=== PATIENT | female | born 1985 | race Caucasian/White ===

== ENCOUNTER 2017-06-05 10:20 | Emergency (ER) | payer MEDICAID, OTHER ==
[~2017-06-05] VITALS: Ht 160 cm; Wt 51.7 kg
[2017-06-05 10:28] VITALS: BP 108/72; PULSE 102; RESP 16; TEMP 98.6; O2SAT 99
[2017-06-05] MEDS ORDERED: SODIUM CHLOR 0.9% 1000 ML INJ 1,000 ML IV ONE (10:37)
[2017-06-05] MEDS ORDERED: TEMA30CA PO (10:40)
[2017-06-05] MEDS ORDERED: KETOROLAC TROMETHAMINE 30 MG/ML (IVP) VIAL IVP ONE (10:45)
[2017-06-05] MEDS ORDERED: PROCHLORPERAZINE INJ 10 MG/2 ML VIAL IVP ONE (10:45)
[2017-06-05] MEDS ORDERED: diphenhydrAMINE HCL 50 MG/ML VIAL IVP ONE (10:45)
--- NOTE | 2017-06-05 10:45 | PD ---
HPI Chief Complaint: Headache Time Seen by Provider: 10:33 Travel History International Travel<30 days: No Contact w/Intl Traveler<30days: No Traveled to known affect area: No History of Present Illness HPI 31-year-old female states she's had a migraine for the past couple hours. She had a Fioricet left over and she tried this and some Motrin and only had mild improvement. She states that 2 years ago she had imaging of her head and her vessels and those were normal. She states this was when she had a headache when she was out of town. She denies any other concurrent complaints other than nausea. She states she has a Mirena and her cycles are irregular because of this but denies that she is aware of. Quality is pressure. Severity is moderate. Pain is worse with lights. PFSH Past Medical History Diminished Hearing: No Influenza Vaccination: Yes ?: Not LMP: MIRENA Past Surgical History Section: Yes Tonsillectomy: Yes Social History Alcohol Use: Yes (SOCIAL) Tobacco Use: No (denies) Substance Use: No Allergies-Medications (Allergen,Severity, Reaction): Coded Allergies: penicillin G (Unverified Allergy, Severe, 06/05/17) cephalexin (Unverified Allergy, Intermediate, lips swell, 06/05/17) adhesive (Unverified Allergy, Mild, 06/05/17) Reported Meds & Prescriptions Reported Meds & Active Scripts Active Reported Temazepam 30 Mg Cap 30 Mg PO HS PRN Review of Systems Except as stated in HPI: all other systems reviewed are Neg Physical Exam Narrative General: No apparent distress, well appearing ENT: mmm Neck: Neck is supple, no meningeal signs, trachea is midline Cardiovascular: Regular rate and rhythm Lungs: No increased respiratory effort noted Extremities: No edema Neuro: Awake, motor and sensation grossly intact, normal speech Data Data Last Documented VS Vital Signs Date Time Temp Pulse Resp B/P (MAP) Pulse Ox O2 Delivery O2 Flow Rate FiO2 06/05/17 11:48 18 06/05/17 10:56 89 105/67 (80) 99 Room Air 06/05/17 10:28 98.6 Orders Orders Ed Urine Pregnancytest Poc (06/05/17 10:37) Ecg Monitoring (06/05/17 10:37) Iv Access Insert/Monitor (06/05/17 10:37) Oximetry (06/05/17 10:37) Ketorolac Inj (Toradol Inj) (06/05/17 10:45) Prochlorperazine Inj (Compazine Inj) (06/05/17 10:45) Diphenhydramine Inj (Benadryl Inj) (06/05/17 10:45) Sodium Chlor 0.9% 1000 Ml Inj (Ns 1000 M (06/05/17 10:37) MDM Medical Decision Making Medical Screen Exam Complete: Yes Emergency Medical Condition: Yes Medical Record Reviewed: Yes (past history confirmed) Differential Diagnosis Migraine, tension, cluster Narrative Course Will hold on imaging given normal imaging in the past and normal exam and vitals with history that is typical for her migraines. Will dose with Toradol, Compazine, Benadryl and fluids and reevaluate Patient denies any new complaints and states that they are feeling better. Patient happy with care, all questions answered. Patient knows that follow up is incumbent on them and to return to the emergency room immediately if new or worsening symptoms develop. Patient given strict return precautions, vitals reviewed and are normal, agrees to further workup as an outpatient. Diagnosis Primary Impression: Cephalalgia Qualified Codes: R51 - Headache Patient Instructions: General Instructions Additional Instructions: return as needed, follow with primary this week, tylenol and motrin as needed Med/Other Pt SpecificInfo: No Change to Meds Disposition: 01 DISCHARGE HOME Condition: Stable Inessa Maldonado MD Jun 05, 2017 10:45
[2017-06-05 10:56] VITALS: BP 105/67; PULSE 89; RESP 18; O2SAT 99
[2017-06-05 11:48] VITALS: RESP 18
== END 2017-06-05 12:44 | disposition home or self-care (01) ==
LOC: PHED 10:20
DX: R51 Headache (principal); R11.0 Nausea
CPT/HCPCS: 84703; 96361; 96374; 96375; 99284; J0780; J1200; J1885; J7030

== ENCOUNTER 2017-10-19 13:30 | Emergency (ER) | payer MEDICAID ==
[~2017-10-19 13:30] MED LIST: TEMA30CA PO
[2017-10-19] MEDS ORDERED: [UNRECOGNIZED DRUG - OTHER] (13:40)
[2017-10-19] MEDS ORDERED: MAGN100T2 PO (13:40)
[2017-10-19 13:53] VITALS: BP_SYST 108; BP_SYST 90; BP_DIAS 59; BP_DIAS 66; PULSE 69
--- NOTE | 2017-10-19 13:54 | PD ---
HPI Chief Complaint: Chest Pain Time Seen by Provider: 13:50 Travel History International Travel<30 days: No Contact w/Intl Traveler<30days: No Traveled to known affect area: No History of Present Illness HPI 32-year-old female patient with history of no significant past medical issues, presents to the ER today because of intermittent left-sided chest pains which she states feels sharp and is a 7 out of 10, lasted 20 minutes this morning. She states it comes and goes and is currently not present. She has been having palpitations as well for the last few days. She had talked her primary care doctor and is post to go in for an EKG. She denies any shortness of breath, fevers, coughing, or any other symptoms. She is not sure of any exacerbating or alleviating factors. She states that she has been having palpitations this weekend, felt like her heart Going fast, and it is sometimes over 100, at one point was 150. Modifying Factors: None Associated Signs & Symptoms: Intermittent left-sided chest pains, palpitations Risk Factors: None PFSH Past Medical History Medical History: Denies Significant Hx Diminished Hearing: No ?: Not LMP: Irregular - has IUD Past Surgical History Section: Yes Tonsillectomy: Yes Other Surgery: Yes (breast augmentation) Social History Alcohol Use: Yes (SOCIAL) Tobacco Use: No (denies) Substance Use: No Allergies-Medications (Allergen,Severity, Reaction): Coded Allergies: penicillin G (Unverified Allergy, Severe, 06/05/17) cephalexin (Unverified Allergy, Intermediate, lips swell, 06/05/17) adhesive (Unverified Allergy, Mild, 06/05/17) Reported Meds & Prescriptions Reported Meds & Active Scripts Active Reported [Thrive Supplement] Magnesium Citrate 100 Mg Tab 100 Mg PO DAILY PRN Temazepam 30 Mg Cap 30 Mg PO HS PRN Review of Systems Except as stated in HPI: all other systems reviewed are Neg Physical Exam Narrative GENERAL: Well-developed young female patient currently in mild distress. Awake and oriented 3. SKIN: Focused skin assessment warm/dry. HEAD: Atraumatic. Normocephalic. EYES: Pupils equal and round. No scleral icterus. No injection or drainage. ENT: No nasal bleeding or discharge. Mucous membranes pink and moist. NECK: Trachea midline. No JVD. Supple. CARDIOVASCULAR: Regular rate and rhythm. No murmur appreciated. Pulses are present and equal bilaterally. RESPIRATORY: No accessory muscle use. Clear to auscultation. Breath sounds equal bilaterally. CHEST: Nontender throughout without deformity or crepitance. No retractions or use of accessory muscles. GASTROINTESTINAL: Abdomen soft, non-tender, nondistended. Hepatic and splenic margins not palpable. MUSCULOSKELETAL: No obvious deformities. No clubbing. No cyanosis. No edema. NEUROLOGICAL: Awake and alert. No obvious cranial nerve deficits. Motor grossly within normal limits. Normal speech. PSYCHIATRIC: Appropriate mood and affect; insight and judgment normal. Data Data Last Documented VS Vital Signs Date Time Temp Pulse Resp B/P (MAP) Pulse Ox O2 Delivery O2 Flow Rate FiO2 10/19/17 15:21 76 18 108/66 (80) 98 Room Air Orders Orders Electrocardiogram (10/19/17 13:43) Complete Blood Count With Diff (10/19/17 13:43) Prothrombin Time / Inr (Pt) (10/19/17 13:43) Act Partial Throm Time (Ptt) (10/19/17 13:43) Chest, Single Ap (10/19/17 13:43) Ecg Monitoring (10/19/17 13:43) Bilateral Bp Monitoring (10/19/17 13:43) Iv Access Insert/Monitor (10/19/17 13:43) Oximetry (10/19/17 13:43) Oxygen Administration (10/19/17 13:43) Ckmb (Isoenzyme) Profile (10/19/17 13:50) Comprehensive Metabolic Panel (10/19/17 13:50) Magnesium (Mg) (10/19/17 13:50) Troponin I (10/19/17 13:50) Bilateral Bp Monitoring (10/19/17 13:50) Sodium Chloride 0.9% Flush (Ns Flush) (10/19/17 14:00) D-Dimer (10/19/17 13:56) Ed Discharge Order (10/19/17 15:58) Labs Laboratory Tests Test 10/19/17 13:50 10/19/17 13:56 Blood Urea Nitrogen 28 MG/DL Creatinine 0.78 MG/DL Random Glucose 88 MG/DL Total Protein 7.1 GM/DL Albumin 3.8 GM/DL Calcium Level 9.0 MG/DL Magnesium Level 2.1 MG/DL Alkaline Phosphatase 35 U/L Aspartate Amino Transf (AST/SGOT) 15 U/L Alanine Aminotransferase (ALT/SGPT) 19 U/L Total Bilirubin 0.3 MG/DL Sodium Level 139 MEQ/L Potassium Level 4.0 MEQ/L Chloride Level 105 MEQ/L Carbon Dioxide Level 26.8 MEQ/L Anion Gap 7 MEQ/L Estimat Glomerular Filtration Rate 86 ML/MIN Total Creatine Kinase 42 U/L Troponin I LESS THAN 0.02 NG/ML White Blood Count 4.3 TH/MM3 Red Blood Count 4.55 MIL/MM3 Hemoglobin 13.8 GM/DL Hematocrit 41.2 % Mean Corpuscular Volume 90.6 FL Mean Corpuscular Hemoglobin 30.3 PG Mean Corpuscular Hemoglobin Concent 33.4 % Red Cell Distribution Width 11.2 % Platelet Count 245 TH/MM3 Mean Platelet Volume 7.0 FL Neutrophils (%) (Auto) 50.2 % Lymphocytes (%) (Auto) 37.3 % Monocytes (%) (Auto) 7.8 % Eosinophils (%) (Auto) 4.1 % Basophils (%) (Auto) 0.6 % Neutrophils # (Auto) 2.2 TH/MM3 Lymphocytes # (Auto) 1.6 TH/MM3 Monocytes # (Auto) 0.3 TH/MM3 Eosinophils # (Auto) 0.2 TH/MM3 Basophils # (Auto) 0.0 TH/MM3 CBC Comment DIFF FINAL Differential Comment Prothrombin Time 10.7 SEC Prothromb Time International Ratio 1.1 RATIO Activated Partial Thromboplast Time 24.6 SEC D-Dimer Quantitative (PE/DVT) 0.30 MG/L FEU [facility] Medical Decision Making Medical Screen Exam Complete: Yes Emergency Medical Condition: Yes Medical Record Reviewed: Yes Interpretation(s) EKG shows NSR, no ST elevation or depression, and no arrhythmias. No significant T-wave inversions. Laboratory Tests Test 10/19/17 13:50 10/19/17 13:56 Blood Urea Nitrogen 28 MG/DL (7-18) Alkaline Phosphatase 35 U/L (45-117) Estimat Glomerular Filtration Rate 86 ML/MIN (>89) Troponin I LESS THAN 0.02 NG/ML Red Cell Distribution Width 11.2 % (11.6-17.2) Eosinophils (%) (Auto) 4.1 % (0.0-4.0) Last 24 hours Impressions Chest X-Ray 10/19/17 1343 Signed Impressions: Service Date/Time: Thursday, October 19, 2017 13:58 - CONCLUSION: No acute disease. Felipe Celaya MD Differential Diagnosis Intermittent chest pains: Dysrhythmias versus ACS versus anxiety attack versus costochondritis Narrative Course Chest x-ray, EKG, lab work was fairly unremarkable. Patient is nonsymptomatic in the ER. She is ambulatory without issues. Vital signs are stable. She does not have any significant medical issues, no family history of early heart disease, no family history of sudden . D-dimer is negative. At this point , my plan would be to release her with follow-up to primary care physician. Return for any worsening in symptoms or new issues as needed. The plan has been discussed with her and she states understanding. Diagnosis Primary Impression: Palpitations Additional Instructions: He should follow-up with your primary care physician regarding your current symptoms. He should return for any worsening in symptoms, worsening chest pains , or new symptoms as needed. Disposition: 01 DISCHARGE HOME Condition: Stable Michael Villa MD Oct 19, 2017 13:54
[2017-10-19] MEDS ORDERED: SODIUM CHLORIDE 0.9% FLUSH 10 ML FLUSH IVF PRN (14:00)
[2017-10-19 14:09] LABS: AUTOMATED NEUTROPHIL # 2.2 TH/MM3 (1.8-7.7); BASOPHIL % 0.6 % (0.0-2.0); EOSINOPHIL # 0.2 TH/MM3 (0-0.4); EOSINOPHIL % 4.1 % (0.0-4.0); HEMATOCRIT 41.2 % (35.0-46.0); HEMOGLOBIN 13.8 GM/DL (11.6-15.3); LYMPH % 37.3 % (9.0-44.0); LYMPHOCYTE # 1.6 TH/MM3 (1.0-4.8); MEAN CELL VOLUME 90.6 FL (80.0-100.0); MEAN CORPUSCULAR HEMOGLOBIN 30.3 PG (27.0-34.0); MEAN CORPUSCULAR HGB CONC 33.4 % (32.0-36.0); MONO % 7.8 % (0.0-8.0); MONOCYTE # 0.3 TH/MM3 (0-0.9); NEUT % 50.2 % (16.0-70.0); PLATELET COUNT 245 TH/MM3 (150-450); RED BLOOD COUNT 4.55 MIL/MM3 (4.00-5.30); RED CELL DISTRIBUTION WIDTH 11.2 % (11.6-17.2); WHITE BLOOD COUNT 4.3 TH/MM3 (4.0-11.0)
--- NOTE | 2017-10-19 14:10 | RADRPT ---
EXAM DATE/TIME: 10/19/2017 13:58 [facility] COMPARISON: No previous studies available for comparison. INDICATIONS : Chest pain for 4 days. MEDICAL HISTORY : None. SURGICAL HISTORY : None. ENCOUNTER: Initial ACUITY: 4 - 6 days PAIN SCORE: 4/10 LOCATION: Bilateral chest FINDINGS: A single view of the chest demonstrates the lungs to be symmetrically aerated without evidence of mas s, infiltrate or effusion. The cardiomediastinal contours are unremarkable. Osseous structures are intact. CONCLUSION: No acute disease. Felipe Celaya MD on October 19, 2017 at 14:08 Board Certified Radiologist. This report was verified electronically.
[2017-10-19 14:37] LABS: CHLORIDE 105 MEQ/L (98-107); SODIUM (NA) 139 MEQ/L (136-145)
[2017-10-19 14:41] LABS: ALBUMIN 3.8 GM/DL (3.4-5.0); BICARBONATE 26.8 MEQ/L (21.0-32.0); BLOOD UREA NITROGEN 28 MG/DL (7-18); GLUCOSE,RANDOM 88 MG/DL (74-106); MAGNESIUM 2.1 MG/DL (1.5-2.5)
[2017-10-19 14:43] LABS: INTERNATIONAL NORMALIZED RATIO 1.1 RATIO; PROTHROMBIN TIME - PATIENT 10.7 SEC (9.8-11.6)
[2017-10-19 14:44] LABS: ALT (GPT) 19 U/L (10-53); AST (GOT) 15 U/L (15-37); CREATININE 0.78 MG/DL (0.50-1.00); GLOMERULAR FILTRATION RATE 86 ML/MIN (>89)
[2017-10-19 14:46] LABS: TOTAL PROTEIN 7.1 GM/DL (6.4-8.2)
[2017-10-19 14:47] LABS: ALKALINE PHOSPHATASE 35 U/L (45-117)
[2017-10-19 14:50] LABS: TROPONIN I LESS THAN 0.02 NG/ML (0.02-0.05)
[2017-10-19 14:59] LABS: D-DIMER 0.3 MG/L FEU (0.00-0.50)
[2017-10-19 15:19] LABS: TOTAL BILIRUBIN ADULT 0.3 MG/DL (0.2-1.0)
[2017-10-19 15:21] VITALS: BP 108/66; PULSE 76; RESP 18; O2SAT 98
--- NOTE | 2017-10-19 16:06 | EKG ---
Date Performed: 10/19/2017 Time Performed: 13:37:02 PTAGE: 32 years EKG: Sinus rhythm WITH SINUS ARRHYTHMIA NORMAL ECG NO PREVIOUS TRACING DOCTOR: Cassy Mott Interpretating Date/Time 10/19/2017 16:05:57
[2017-10-19 16:10] VITALS: BP 104/64
== END 2017-10-19 16:12 | disposition home or self-care (01) ==
LOC: PHEFT 13:30
DX: R00.2 Palpitations (principal); R07.89 Other chest pain; Z79.899 Other long term (current) drug therapy
CPT/HCPCS: 71045; 80053; 82550; 83735; 84484; 85025; 85379; 85610; 85730; 93005